=== PATIENT | female | born 1970 | race Caucasian/White ===

== ENCOUNTER 2022-04-15 14:04 | Emergency (ER) | payer SELFPAY ==
[~2022-04-15] VITALS: Ht 160 cm; Wt 68.0 kg
[2022-04-15 14:06] VITALS: BP 140/80
[2022-04-15] MEDS ORDERED: OXYCODONE HCL/ACETAMINOPHEN 5/325MG TABLET PO ONE (16:15)
[2022-04-15] MEDS ORDERED: HYDR-4001 MT (16:43)
[2022-04-15] MEDS ORDERED: METH-653 MT (16:43)
[2022-04-15] MEDS ORDERED: IBUP-2029 MT (16:43)
== END 2022-04-15 17:46 | disposition home or self-care (01) ==
LOC: ER 14:04
DX: M54.2 Cervicalgia (principal); V49.49XA Driver injured in collision with other motor vehicles in traffic accident, initial encounter; Y93.89 Activity, other specified; Y92.89 Other specified places as the place of occurrence of the external cause; Y99.8 Other external cause status; I10 Essential (primary) hypertension
CPT/HCPCS: 72040; 73562; 73590; 99284